=== PATIENT | male | born 1965 | race Two or more races ===

== ENCOUNTER 2017-02-13 06:53 | Emergency (ER) | payer SELFPAY ==
[~2017-02-13] VITALS: Ht 183.5 cm; Wt 81.6 kg
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
[2017-02-13] MEDS: Phenytoin 500 MG in NS 110 ML IV ONE ×2 (07:15→08:03)
[2017-02-13] MEDS ORDERED: Phenytoin 250mg/5ml vial ONE (07:18)
[2017-02-13 08:27] LABS: HEMATOCRIT 34.2 % (42.0-52.0); HEMOGLOBIN 11.1 G/DL (14.2-18.0); MEAN CORPUSCULAR VOLUME 95 FL (80-99); PLATELET COUNT 163 K/UL (150-450); RED BLOOD COUNT 3.59 M/UL (4.70-6.10); RED CELL DISTRIBUTION WIDTH 13.1 % (11.6-14.8); WHITE BLOOD COUNT 3.2 K/UL (4.8-10.8)
[2017-02-13 08:44] LABS: ANION GAP 7 mmol/L (5-15); BLOOD UREA NITROGEN 12 mg/dL (7-18); CALCIUM 7.9 MG/DL (8.5-10.1); CARBON DIOXIDE 26 MMOL/L (21-32); CHLORIDE 102 MMOL/L (98-107); CREATININE 0.8 MG/DL (0.55-1.30); POTASSIUM 3.7 MMOL/L (3.5-5.1); SODIUM 135 MMOL/L (136-145)
[2017-02-13 08:50] LABS: ALBUMIN 3.1 G/DL (3.4-5.0); ALBUMIN/GLOBULIN RATIO 0.5 (1.0-2.7); ALKALINE PHOSPHATASE 135 U/L (46-116); ASPARTATE AMINO TRANSFERASE 39 U/L (15-37); BILIRUBIN,TOTAL 0.4 MG/DL (0.2-1.0)
[2017-02-13 09:14] LABS: ALANINE AMINOTRANSFERASE 25 U/L (12-78)
[2017-02-13] MEDS ORDERED: KEPPRA500 M4 ORAL (11:59)
[2017-02-13] MEDS ORDERED: ZOFRAN ODT4 MG ORAL (11:59)
--- NOTE | 2017-02-13 12:50 | Diagnostic Imaging Report ---
Indication: Headache Technique: Contiguous 5 mm thick transaxial imaging of the head obtained in a Siemens Sensation [address] scanner. Soft tissue and bone windows generated. Automatic Exposure Control was utilized. Total Dose length Product (DLP): [address] Dose Index Volume (CTDIvol): 0.15, 70.38 mGy Comparison: none Findings: There is bifrontal encephalomalacia with volume loss noted worse on the right side compared to the left, probably postischemic. There is mild prominence of the ventricles, basal cisterns, and cerebral sulci consistent with atrophy. Mild, nonspecific, white matter hypoattenuation is noted throughout the brain consistent with chronic small vessel disease. There is prominence of the cisterna magna. There is no midline shift, edema, acute hemorrhage, mass effect, or abnormal extra-axial fluid collections. Bones and extra osseous soft tissues are unremarkable. There is opacification of the right sphenoid sinus. 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 No acute intracranial bleed, mass effect or edema. Mild atrophy of the brain. Nonspecific white matter hypoattenuation probably due to chronic small vessel disease. Sinusitis The CT scanner at [facility] is accredited by the [employer] and the scans are performed using dose optimization techniques as appropriate to a performed exam including Automatic Exposure control.
[2017-02-13 12:56] VITALS: BP 132/86
[2017-02-13 13:00] VITALS: BP 130/82
== END 2017-02-13 13:05 | disposition home or self-care (01) ==
LOC: EDBD 06:53 → EMR 07:33
DX: R51 Headache (principal); R11.0 Nausea; J32.9 Chronic sinusitis, unspecified; G93.89 Other specified disorders of brain
CPT/HCPCS: 36415; 70450; 80053; 80185; 80299; 85007; 85025; 99284; J1165